=== PATIENT | male | born 1975 | race American Indian/Alaskan Native ===

== ENCOUNTER 2016-07-27 09:31 | Outpatient (CLI) | payer OTHER ==
--- NOTE | 2016-07-27 11:21 | Ultrasound Report ---
ABDOMINAL ULTRASOUND: 07/27/16 09:31:00 CLINICAL: Epigastric pain. FINDINGS: High-resolution ultrasound demonstrated a normal size liver with normal contour and echogenicity. No liver mass. Normal hepatic vasculature and inferior vena cava. Partially contracted gallbladder with no stones. The gallbladder wall measures 2.6 mm. Normal bile ducts. The common bile duct measures 5.0 mm diameter. The pancreas was not well imaged due to bowel gas and body habitus. Normal abdominal aorta. A normal spleen measured 10.4cm. Normal kidneys with normal echogenicity and normal non-dilated renal collecting systems and ureters. The right kidney measured 11.4 x 5.5 x 4.7cm. The left kidney measured 11.2 x 6.7 x 5.1cm. No renal mass or calculus. No ascites or mass. IMPRESSION: Normal abdomen.
== END 2016-07-27 09:32 | disposition home or self-care (01) ==
LOC: SPVWC 09:31
PROVIDERS: ATTEND Family Medicine
DX: K82.0 Obstruction of gallbladder (principal)
CPT/HCPCS: 76700